=== PATIENT | female | born 1970 | race African-American/Black ===

== ENCOUNTER 2019-04-30 16:23 | Observation (INO) | payer OTHER ==
[2019-04-30] MEDS ORDERED: NACL 0.9% 1000 ML IV ONE (17:28)
--- NOTE | 2019-04-30 18:12 | XRay Report ---
CHEST 1 VIEW INDICATION: sob. COMPARISON: None. FINDINGS: Support devices: None. Heart: Within normal limits. Lungs/Pleura: No acute air space or interstitial disease. Lung volumes are mildly diminished. Additional findings: None. IMPRESSION: Mildly diminished lung volumes. Signer Name: Sergo Mcconnell MD Signed: 04/30/2019 6:08 PM Workstation Name: [id number]
--- NOTE | 2019-04-30 18:34 | Emergency Department Report ---
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 This patient is not known to this provider pre viously. She does not have a local primary care doctor. She may have a history of hypertension. She states that she is not . The patient is brought to the hospital by emergency medical services with a complaint of weakness. The patient describes global weakness which started at 12:00 today. This is associated with a sensation of shortness of breath. The patient cannot further describe the shortness of breath. She also describes back pain and dysuria. She also describes head pressure. She also describes a feeling like there is something pressing on her entire body. She does not specifically complain of focal extremity weakness or numbness. She denies neck pain, chest pain, anterior abdominal pain, an individual extremity muscular pain. She's never had this before. -: Gradual Location: head, back Quality: constant Improves with: none Worsens with: none - Related Data Allergies Allergy/AdvReac Type Severity Reaction Status Date / Time No Known Allergies Allergy Unverified 04/30/19 18:28 ED Review of Systems ROS: Stated complaint: DIF/LOSS OF FEELING IN BODY Other details as noted in HPI Constitutional: malaise, weakness ENT: denies: congestion Respiratory: shortness of breath Cardiovascular: denies: syncope Gastrointestinal: denies: abdominal pain Genitourinary: dysuria Musculoskeletal: back pain Neurological: weakness Hematological/Lymphatic: denies: easy bleeding ED Past Medical Hx - Past Medical History Previous Medical History?: Yes Hx Hypertension: Yes - Social History Smoking Status: Never Smoker Substance Use Type: None ED Physical Exam - General Limitations: Language Barrier General appearance: alert, in no apparent distress - Head Head exam: Present: atraumatic, normocephalic - Eye Eye exam: Present: normal appearance, EOMI. Absent: nystagmus - ENT ENT exam: Present: normal exam, normal orophraynx, mucous membranes moist, normal external ear exam - Neck Neck exam: Present: normal inspection, full ROM. Absent: tenderness, meningismus - Respiratory Respiratory exam: Present: normal lung sounds bilaterally. Absent: respiratory distress - Cardiovascular Cardiovascular Exam: Present: normal rhythm, tachycardia, normal heart sounds. Absent: systolic murmur, diastolic murmur, rubs, gallop - GI/Abdominal GI/Abdominal exam: Present: soft. Absent: distended, tenderness, guarding, rebound, rigid, pulsatile mass - Extremities Exam Extremities exam: Present: normal inspection, full ROM, other (2+ pulses noted in the bilateral upper, lower extremities. There is no long bone tenderness. Musculoskeletal compartments are soft. The pelvis is stable.). Absent: pedal edema, joint swelling, calf tenderness - Back Exam Back exam: Present: normal inspection, full ROM. Absent: tenderness, CVA tenderness (R), CVA tenderness (L), paraspinal tenderness, vertebral tenderness - Neurological Exam Neurological exam: Present: alert, other (there is no facial droop. Tongue is midline. Extraocular movements are intact bilaterally. Phonating in complete sentences. Moving 4 extremities spontaneously. 5 out of 5 strength in 4 extremities. Sensation is intact to light touch in 4 extremities.) - Psychiatric Psychiatric exam: Present: flat affect - Skin Skin exam: Present: warm, dry, intact, normal color. Absent: rash ED Course Vital Signs 04/30/19 04/30/19 04/30/19 16:56 17:30 18:11 Temperature 98.9 F 98.5 F Pulse Rate 120 H Respiratory 16 14 Rate Blood Pressure 152/85 Blood Pressure [Left] O2 Sat by Pulse 97 99 Oximetry 04/30/19 19:00 Temperature Pulse Rate 123 H Respiratory 19 Rate Blood Pressure Blood Pressure 113/76 [Left] O2 Sat by Pulse 99 Oximetry - Reevaluation(s) Reevaluation #1: 04/30/19 18:36 Differential diagnosis, including but not limited to: Intracranial hemorrhage, pneumonia, pulmonary embolism, thyroid storm, intra-abdominal infection, urinary tract infection, bacteremia, viremia, acute coronary syndrome, anxiety Assessment and plan: 49-year-old female with a complaint of shortness of breath, back pain, pressure and general weakness. She is tachycardic but afebrile. She moves 4 extremities spontaneously. She does not appear to be in any acute distress. 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 We will treat her symptoms with IV fluids, obtain CT scan chest, CT scan abdomen pelvis, CT scan brain, and reassess. Appropriate screening laboratory studies are ordered. 04/30/19 18:37 Reevaluation #2: 04/30/19 20:10 Urinalysis suggestive of urinary tract infection. Laboratory studies rule in for sepsis, manifest by lactic acidosis, tachycardia, and leukocytosis. Antibiotics ordered. Additional fluids and potassium repletion ordered. Scans pending at this time. Reevaluation #3: 04/30/19 21:12 cta chest negative Reevaluation #4: 04/30/19 21:20 ct a/p negative for acute surgical process. Reevaluation #5: 04/30/19 21:37 Heart rate now 113. Patient still endorsing weakness. Given the persistence of abnormal vital signs, systemic inflammatory response syndrome, systemic illness, who recommended admission for IV antibiotics, fluids, and supportive care. Case is presented to Hospital nurse practitioner, Ms Brown, who accepts the patient to the medical service - Consultations Consultation #1: 04/30/19 22:39 d/w [place] physician coordinator, Dr Muniz, who authorized patients admission to this facility over night ED Medical Decision Making - Lab Data Result diagrams: 04/30/19 18:16 04/30/19 18:16 Vital Signs 04/30/19 04/30/19 16:56 18:11 Temperature 98.9 F 98.5 F Pulse Rate 120 H Respiratory 16 Rate Blood Pressure 152/85 O2 Sat by Pulse 97 Oximetry Vital Signs 04/30/19 04/30/19 04/30/19 16:56 17:30 18:11 Temperature 98.9 F 98.5 F Pulse Rate 120 H Respiratory 16 14 Rate Blood Pressure 152/85 Blood Pressure [Left] O2 Sat by Pulse 97 99 Oximetry 04/30/19 19:00 Temperature Pulse Rate 123 H Respiratory 19 Rate Blood Pressure Blood Pressure 113/76 [Left] O2 Sat by Pulse 99 Oximetry Lab Results 04/30/19 04/30/19 04/30/19 Range/Units 18:16 18:16 18:16 WBC 15.3 H (4.5-11.0) K/mm3 RBC 4.40 (3.65-5.03) M/mm3 Hgb 13.6 (10.1-14.3) gm/dl Hct 40.4 (30.3-42.9) % MCV 92 (79-97) fl MCH 31 (28-32) pg MCHC 34 (30-34) % RDW 12.9 L (13.2-15.2) % Plt Count 240 (140-440) K/mm3 Lymph % (Auto) 5.9 L (13.4-35.0) % Boyd % (Auto) 4.3 (0.0-7.3) % Eos % (Auto) 0.1 (0.0-4.3) % Baso % (Auto) 0.5 (0.0-1.8) % Lymph # 0.9 L (1.2-5.4) K/mm3 Boyd # 0.7 (0.0-0.8) K/mm3 Eos # 0.0 (0.0-0.4) K/mm3 Baso # 0.1 (0.0-0.1) K/mm3 Seg Neutrophils % 89.2 H (40.0-70.0) % Seg Neutrophils # 13.6 H (1.8-7.7) K/mm3 PT (12.2-14.9) Sec. INR (0.87-1.13) APTT (24.2-36.6) Sec. Sodium 140 (137-145) mmol/L Potassium 3.4 L (3.6-5.0) mmol/L Chloride 96.0 L (98-107) mmol/L Carbon Dioxide 25 (22-30) mmol/L Anion Gap 22 mmol/L BUN 18 H (7-17) mg/dL Creatinine 0.7 (0.7-1.2) mg/dL Estimated GFR > 60 ml/min BUN/Creatinine Ratio 26 % Glucose 154 H (65-100) mg/dL Lactic Acid 3.00 H* (0.7-2.0) mmol/L Calcium 9.1 (8.4-10.2) mg/dL Magnesium 2.10 (1.7-2.3) mg/dL Total Bilirubin 0.30 (0.1-1.2) mg/dL AST 48 H (5-40) units/L ALT 75 H (7-56) units/L Alkaline Phosphatase 70 (35-129) units/L Total Creatine Kinase 152 H (30-135) units/L Troponin T < 0.010 (0.00-0.029) ng/mL Total Protein 8.2 (6.3-8.2) g/dL Albumin 4.5 (3.9-5) g/dL Albumin/Globulin Ratio 1.2 % TSH (0.270-4.200) mlU/mL Urine Color (Yellow) Urine Turbidity (Clear) Urine pH (5.0-7.0) Ur Specific Commiskey (1.003-1.030) Urine Protein (Negative) mg/dL Urine Glucose (UA) (Negative) mg/dL Urine Ketones (Negative) mg/dL Urine Blood (Negative) Urine Nitrite (Negative) Urine Bilirubin (Negative) Urine Urobilinogen (<2.0) mg/dL Ur Leukocyte Esterase (Negative) Urine WBC (Auto) (0.0-6.0) /HPF Urine RBC (Auto) (0.0-6.0) /HPF U Epithel Cells (Auto) (0-13.0) /HPF Urine Mucus /HPF 04/30/19 04/30/19 04/30/19 Range/Units 18:27 18:28 19:42 WBC (4.5-11.0) K/mm3 RBC (3.65-5.03) M/mm3 Hgb (10.1-14.3) gm/dl Hct (30.3-42.9) % MCV (79-97) fl MCH (28-32) pg MCHC (30-34) % RDW (13.2-15.2) % Plt Count (140-440) K/mm3 Lymph % (Auto) (13.4-35.0) % Boyd % (Auto) (0.0-7.3) % Eos % (Auto) (0.0-4.3) % Baso % (Auto) (0.0-1.8) % Lymph # (1.2-5.4) K/mm3 Boyd # (0.0-0.8) K/mm3 Eos # (0.0-0.4) K/mm3 Baso # (0.0-0.1) K/mm3 Seg Neutrophils % (40.0-70.0) % Seg Neutrophils # (1.8-7.7) K/mm3 PT 12.9 (12.2-14.9) Sec. INR 1.00 (0.87-1.13) APTT 27.7 (24.2-36.6) Sec. Sodium (137-145) mmol/L Potassium (3.6-5.0) mmol/L Chloride (98-107) mmol/L Carbon Dioxide (22-30) mmol/L Anion Gap mmol/L BUN (7-17) mg/dL Creatinine (0.7-1.2) mg/dL Estimated GFR ml/min BUN/Creatinine Ratio % Glucose (65-100) mg/dL Lactic Acid (0.7-2.0) mmol/L Calcium (8.4-10.2) mg/dL Magnesium (1.7-2.3) mg/dL Total Bilirubin (0.1-1.2) mg/dL AST (5-40) units/L ALT (7-56) units/L Alkaline Phosphatase (35-129) units/L Total Creatine Kinase (30-135) units/L Troponin T (0.00-0.029) ng/mL Total Protein (6.3-8.2) g/dL Albumin (3.9-5) g/dL Albumin/Globulin Ratio % TSH 0.909 (0.270-4.200) mlU/mL Urine Color Yellow (Yellow) Urine Turbidity Clear (Clear) Urine pH 6.0 (5.0-7.0) Ur Specific Commiskey 1.015 (1.003-1.030) Urine Protein <15 mg/dl (Negative) mg/dL Urine Glucose (UA) Neg (Negative) mg/dL Urine Ketones Neg (Negative) mg/dL Urine Blood Neg (Negative) Urine Nitrite Pos (Negative) Urine Bilirubin Neg (Negative) Urine Urobilinogen < 2.0 (<2.0) mg/dL Ur Leukocyte Esterase Tr (Negative) Urine WBC (Auto) 12.0 H (0.0-6.0) /HPF Urine RBC (Auto) 3.0 (0.0-6.0) /HPF U Epithel Cells (Auto) 1.0 (0-13.0) /HPF Urine Mucus Few /HPF - EKG Data -: EKG Interpreted by Sc EKG shows normal: sinus rhythm Rate: tachycardia - EKG Data When compared to previous EKG there are: previous EKG unavailable 04/30/19 18:38 Is no prior EKG available for comparison. This is a sinus tachycardia, 121 bpm, there is a rightward axis deviation, the QTC is prolonged, there is motion artifact, Q waves noted in the inferior leads, the EKG is abnormal, the EKG is not consistent with ST elevation myocardial. There is no prior EKG available for comparison. - Radiology Data Radiology results: report reviewed, image reviewed Print Report Referring Physician: TERESA GORDON Patient Name: DIONNE SANTOS Date of : 1970 Sex: Female Report Date: 2019-04-30 Report Status: Finalized Findings [facility] [address] [place] [address] XRay Report Signed Patient: DIONNE SANTOS MR#: [id number] 3 : 1970 Acct:[id number] Age/Sex: 49 / F ADM Date: 04/30/19 Loc: ED Attending Dr: Ordering Physician: TERESA GORDON MD Date of Service: 04/30/19 Procedure(s): XR chest 1V ap Accession Number(s): [id number] cc: TERESA GORDON MD Fluoro Time In Minutes: CHEST 1 VIEW INDICATION: sob. COMPARISON: None. FINDINGS: Support devices: None. Heart: Within normal limits. Lungs/Pleura: No acute air space or interstitial disease. Lung volumes are mildly diminished. Additional findings: None. IMPRESSION: Mildly diminished lung volumes. Signer Name: Sergo Mcconnell MD Signed: 04/30/2019 6:08 PM Workstation Name: [id number] Transcribed By: ES Dictated By: Sergo Mcconnell MD Electronically Authenticated By: Sergo Mcconnell MD Signed Date/Time: 04/30/191807 DD/ 06 Critical Care Time: Yes Critical care time in (mins) excluding proc time.: 35 Critical care attestation.: If time is entered above; I have spent that time in minutes in the direct care of this critically ill patient, excluding procedure time. ED Disposition Clinical Impression: Sepsis, Dyspnea, Weakness, Hypokalemia Disposition: OP ADMIT IP TO THIS HOSP Is pt being admited?: Yes Condition: Serious
[2019-04-30 18:47] LABS: Basophils # (Auto) 0.1 K/mm3 (0.0-0.1); Basophils % (Auto) 0.5 % (0.0-1.8); Eosinophils % (Auto) 0.1 % (0.0-4.3); Hematocrit 40.4 % (30.3-42.9); Hemoglobin 13.6 gm/dl (10.1-14.3); Lymphocytes # (Auto) 0.9 K/mm3 (1.2-5.4); Lymphocytes % (Auto) 5.9 % (13.4-35.0); Mean Corpuscular HGB Conc 34 % (30-34); Mean Corpuscular Volume 92 fl (79-97); Monocytes # (Auto) 0.7 K/mm3 (0.0-0.8); Monocytes % (Auto) 4.3 % (0.0-7.3); Red Cell Distribution Width 12.9 % (13.2-15.2)
[2019-04-30 18:58] LABS: Partial Thromboplastin Time 27.7 Sec. (24.2-36.6)
[2019-04-30 19:03] LABS: Alanine Aminotransferase 75 units/L (7-56); Albumin 4.5 g/dL (3.9-5); BUN/Creatinine Ratio 26; Blood Urea Nitrogen 18 mg/dL (7-17); Calcium 9.1 mg/dL (8.4-10.2); Hemolysis Index 13
[2019-04-30 19:54] LABS: Bilirubin,Urine NEG (Negative); Blood,Urine NEG (Negative); Color,Urine Yellow (Yellow); Mucus,Urine FEW /HPF; Protein,Urine <15 mg/dL mg/dL (Negative); Urobilinogen,Urine < 2.0 mg/dL (<2.0)
[2019-04-30 20:00] LABS: Platelet Count 240 K/mm3 (140-440)
[2019-04-30] MEDS ORDERED: NACL 0.9% 1000 ML 1,000 ML IV ONE (20:09)
[2019-04-30] MEDS ORDERED: ROCEPHIN/NS 2 GM/100 ML 2 GM/100 ML BAG IV ONE (20:09)
[2019-04-30] MEDS ORDERED: K-DUR PO ONE (20:09)
--- NOTE | 2019-04-30 20:55 | Cat Scan Report ---
CT angio chest INDICATION: sob weak. TECHNIQUE: All CT scans at this location are performed using CT dose reduction for ALARA by means of automated e xposure control. Precontrast localizer images were obtained, followed by axial and 3-dimensional reconstruction images , performed at an independent workstation by the mechanical technologist after IV bolus contrast injection. COMPARISON: None available. FINDINGS: Mediastinum, vijaya and axillae are negative. Very mild, chronic appearing diffuse interstitial lung di sease. No pleural fluid. No focal consolidation. Images through the abdomen show marked hepatic steatosis. No evidence of pulmonary embolus. IMPRESSION: 1. Negative for pulmonary embolus. 2. Hepatic steatosis. Signer Name: Max Vidal MD Signed: 04/30/2019 8:50 PM Workstation Name: [id number]
--- NOTE | 2019-04-30 21:13 | Cat Scan Report ---
CT abdomen pelvis w con INDICATION: back pain weak tachycardia dysuria. TECHNIQUE: All CT scans at this location are performed using CT dose reduction for ALARA by means of automated e xposure control. COMPARISON: None available. FINDINGS: Lung bases are clear of acute disease. Interval atelectasis in the dependent lungs. Low-attenuation l esion in the right lobe of the liver probably represent small hemangioma, since it is less prominent on delayed images. Liver is otherwise negative. Gallbladder, spleen, pancreas, kidneys and adrenals a re negative. Abdominal aorta is normal in size. No adenopathy. 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 Pelvis IUD in the uterus. Urinary bladder and distal ureters are negative. Ovaries appear normal. Appendix c annot be identified, but there is no pericecal edema. No free fluid. No appreciable bowel abnormality . No skeletal lesions. IMPRESSION: 1. No acute abnormalities. Signer Name: Max Vidal MD Signed: 04/30/2019 9:09 PM Workstation Name: [id number]
--- NOTE | 2019-04-30 21:22 | Cat Scan Report ---
CT head/brain wo con INDICATION / CLINICAL INFORMATION: 49 years Female; headache weak. TECHNIQUE: Routine CT head without contrast. All CT scans at this location are performed using CT dos e reduction for ALARA by means of automated exposure control. COMPARISON: None. FINDINGS: BRAIN / INTRACRANIAL CONTENTS: No acute hemorrhage, mass effect, midline shift, hydrocephalus, or acu te, large territorial infarct. No chronic infarct or focal atrophy. Normal brain volume and ventricul ar/sulcal size for age. No significant white matter abnormality. CRANIOCERVICAL JUNCTION: No significant abnormality. ORBITS: No significant abnormality of visualized orbits. SINUSES / MASTOIDS: The visualized left maxillary antrum appears to be nearly completely opacified. ADDITIONAL FINDINGS: None. IMPRESSION: 1. No focal mass, hemorrhage, hydrocephalus, or acute, large territorial infarct. Signer Name: Prasanna Hou MD, III Signed: 04/30/2019 9:17 PM Workstation Name: [id number]
[2019-04-30 21:42] LABS: HCG,Quantitative < 2 mIU/mL (0-4); Hepatitis B Surface Antigen Non-Reactive (Negative); Hepatitis C Virus Antibody Non-Reactive (NonReactive)
[2019-04-30] MEDS ORDERED: ZOFRAN IV PRN (21:45)
[2019-04-30] MEDS ORDERED: SODIUM CHLORIDE FLUSH SYRINGE 10 ML IV PRN (21:45)
[2019-04-30] MEDS ORDERED: PERCOCET 5/325 PO PRN (21:45)
[2019-04-30] MEDS ORDERED: TYLENOL PO PRN (21:45)
--- NOTE | 2019-04-30 21:51 | History and Physical Report ---
<BE MOLINA - Last Filed: 05/01/19 02:14> History of Present Illness Date of examination: 04/30/19 Date of admission: 04/30/2019 Chief complaint: weakness and pain with urination x5 days History of present illness: Pt is a 49 year old Upper Sorbian-speaking female with PMHx of HTN who was brought to the ER with complaint of weakness and difficulty urinating x 5 days. Pt's son at bedside translates that the The patient states that she had been having pain in urination for 5 days, she states that she woke up this morning feeling very weak and dizzy, she almost passed out, that when her son called the ambulance and she was taking to the ER. Pt reports chest pain and generalized body aches, back pain, disuria, generalized weakness and numbness, she denies nausea, denies vomiting, denied fever, denied chills. In the ER pt had a positive UTI, her WBC was 15.3, potassium 3.4, lactic acid was 4, IVF and IV antibiotic was started, she was admitted for further management. Pt belongs to [facility], they were called by the RE doctor, they approved her stay for observation. Past History Past Medical History: hypertension Past Surgical History: No surgical history Social history: no significant social history Family history: no significant family history Medications and Allergies Allergies Allergy/AdvReac Type Severity Reaction Status Date / Time No Known Allergies Allergy Unverified 04/30/19 18:28 Active Meds: Active Medications Potassium Chloride (Kcl 10meq/100ml) 10 meq in 100 mls @ 100 mls/hr IV Q1H [facility] Stop: 04/30/19 22:59 Review of Systems Constitutional: weakness, lethargy Cardiovascular: chest pain Gastrointestinal: abdominal pain Genitourinary Female: dyspareunia, dysuria Musculoskeletal: low back pain Neurological: weakness Exam - Constitutional Vitals: Temp Pulse Resp BP Pulse Ox 98.5 F 123 H 19 113/76 99 04/30/19 18:11 04/30/19 19:00 04/30/19 19:00 04/30/19 19:00 04/30/19 19:00 General appearance: Present: mild distress, well-nourished - EENT Eyes: Present: EOM intact ENT: hearing intact - Neck Neck: Present: normal ROM - Respiratory Respiratory effort: normal Respiratory: right: CTA - Cardiovascular Rhythm: regular Results - Labs CBC & Chem 7: 04/30/19 18:16 04/30/19 18:16 Labs: Laboratory Last Values WBC 15.3 K/mm3 (4.5-11.0) H 04/30/19 18:16 RBC 4.40 M/mm3 (3.65-5.03) 04/30/19 18:16 Hgb 13.6 gm/dl (10.1-14.3) 04/30/19 18:16 Hct 40.4 % (30.3-42.9) 04/30/19 18:16 MCV 92 fl (79-97) 04/30/19 18:16 MCH 31 pg (28-32) 04/30/19 18:16 MCHC 34 % (30-34) 04/30/19 18:16 RDW 12.9 % (13.2-15.2) L 04/30/19 18:16 Plt Count 240 K/mm3 (140-440) 04/30/19 18:16 Lymph % (Auto) 5.9 % (13.4-35.0) L 04/30/19 18:16 [place] % (Auto) 4.3 % (0.0-7.3) 04/30/19 18:16 Eos % (Auto) 0.1 % (0.0-4.3) 04/30/19 18:16 Baso % (Auto) 0.5 % (0.0-1.8) 04/30/19 18:16 Lymph # 0.9 K/mm3 (1.2-5.4) L 04/30/19 18:16 [place] # 0.7 K/mm3 (0.0-0.8) 04/30/19 18:16 Eos # 0.0 K/mm3 (0.0-0.4) 04/30/19 18:16 Baso # 0.1 K/mm3 (0.0-0.1) 04/30/19 18:16 Seg Neutrophils % 89.2 % (40.0-70.0) H 04/30/19 18:16 Seg Neutrophils # 13.6 K/mm3 (1.8-7.7) H 04/30/19 18:16 PT 12.9 Sec. (12.2-14.9) 04/30/19 18:28 INR 1.00 (0.87-1.13) 04/30/19 18:28 APTT 27.7 Sec. (24.2-36.6) 04/30/19 18:28 Sodium 140 mmol/L (137-145) 04/30/19 18:16 Potassium 3.4 mmol/L (3.6-5.0) L 04/30/19 18:16 Chloride 96.0 mmol/L (98-107) L 04/30/19 18:16 Carbon Dioxide 25 mmol/L (22-30) 04/30/19 18:16 Anion Gap 22 mmol/L 04/30/19 18:16 BUN 18 mg/dL (7-17) H 04/30/19 18:16 Creatinine 0.7 mg/dL (0.7-1.2) 04/30/19 18:16 Estimated GFR > 60 ml/min 04/30/19 18:16 BUN/Creatinine Ratio 26 % 04/30/19 18:16 Glucose 154 mg/dL (65-100) H 04/30/19 18:16 Lactic Acid 2.80 mmol/L (0.7-2.0) H* 04/30/19 20:52 Calcium 9.1 mg/dL (8.4-10.2) 04/30/19 18:16 Magnesium 2.10 mg/dL (1.7-2.3) 04/30/19 18:16 Total Bilirubin 0.30 mg/dL (0.1-1.2) 04/30/19 18:16 AST 48 units/L (5-40) H 04/30/19 18:16 ALT 75 units/L (7-56) H 04/30/19 18:16 Alkaline Phosphatase 70 units/L (35-129) 04/30/19 18:16 Total Creatine Kinase 152 units/L (30-135) H 04/30/19 18:16 Troponin T < 0.010 ng/mL (0.00-0.029) 04/30/19 18:16 Total Protein 8.2 g/dL (6.3-8.2) 04/30/19 18:16 Albumin 4.5 g/dL (3.9-5) 04/30/19 18:16 Albumin/Globulin Ratio 1.2 % 04/30/19 18:16 TSH 0.909 mlU/mL (0.270-4.200) 04/30/19 18:27 Free T4 1.10 ng/dL (0.76-1.46) 04/30/19 20:51 HCG, Quant < 2 mIU/mL (0-4) 04/30/19 20:40 Urine Color Yellow (Yellow) 04/30/19 19:42 Urine Turbidity Clear (Clear) 04/30/19 19:42 Urine pH 6.0 (5.0-7.0) 04/30/19 19:42 Ur Specific [place] 1.015 (1.003-1.030) 04/30/19 19:42 Urine Protein <15 mg/dl mg/dL (Negative) 04/30/19 19:42 Urine Glucose (UA) Neg mg/dL (Negative) 04/30/19 19:42 Urine Ketones Neg mg/dL (Negative) 04/30/19 19:42 Urine Blood Neg (Negative) 04/30/19 19:42 Urine Nitrite Pos (Negative) 04/30/19 19:42 Urine Bilirubin Neg (Negative) 04/30/19 19:42 Urine Urobilinogen < 2.0 mg/dL (<2.0) 04/30/19 19:42 Ur Leukocyte Esterase Tr (Negative) 04/30/19 19:42 Urine WBC (Auto) 12.0 /HPF (0.0-6.0) H 04/30/19 19:42 Urine RBC (Auto) 3.0 /HPF (0.0-6.0) 04/30/19 19:42 U Epithel Cells (Auto) 1.0 /HPF (0-13.0) 04/30/19 19:42 Urine Mucus Few /HPF 04/30/19 19:42 Hepatitis A IgM Ab Non-reactive (NonReactive) 04/30/19 20:40 Hep Bs Antigen Non-reactive (Negative) 04/30/19 20:40 Hep B Core IgM Ab Non-reactive (NonReactive) 04/30/19 20:40 Hepatitis C Antibody Non-reactive (NonReactive) 04/30/19 20:40 Assessment and Plan Assessment and plan: 1. Urosepsis 2. Hypokalemia 3. Leukocytosis 4. H/o HTN Plan: Pt is admitted for urosepsis Continue Ceftriaxone daily IVF for hydration Repeat labs in am Resume home meds Supportive care DVT prophylaxis Plan d/w pt's family in room Pt's condition/plan d/w Dr Lira Advance Directives: Yes VTE prophylaxis?: Mechanical Plan of care discussed with patient/family: Yes <JULIO CESAR LIRA - Last Filed: 05/01/19 02:25> History of Present Illness Date of admission: 04/30/19 21:45 Medications and Allergies Active Meds: Active Medications Acetaminophen (Tylenol) 650 mg PO Q4H PRN PRN Reason: Pain MILD(1-3)/Fever >100.5/WOODS Famotidine (Pepcid) 20 mg IV BID [facility] Last Admin: 04/30/19 23:09 Dose: 20 mg Documented by: Sodium Chloride (Nacl 0.9% 1000 Ml) 1,000 mls @ 150 mls/hr IV DIRECT [facility] Last Admin: 04/30/19 23:09 Dose: 100 mls/hr Documented by: Ceftriaxone Sodium (Rocephin/Ns 1 Gm/50 Ml) 1 gm in 50 mls @ 100 mls/hr IV Q24HR [facility]; Protocol Ondansetron HCl (Zofran) 4 mg IV Q8H PRN PRN Reason: Nausea And Vomiting Oxycodone/Acetaminophen (Percocet 5/325) 1 tab PO Q6H PRN PRN Reason: Pain, Moderate (4-6) Sodium Chloride (Sodium Chloride Flush Syringe 10 Ml) 10 ml IV BID [facility] Last Admin: 04/30/19 23:09 Dose: 10 ml Documented by: Sodium Chloride (Sodium Chloride Flush Syringe 10 Ml) 10 ml IV PRN PRN PRN Reason: LINE FLUSH Exam - Constitutional Vitals: Temp Pulse Resp BP Pulse Ox 98.7 F 112 H 19 119/79 98 04/30/19 19:40 04/30/19 23:03 04/30/19 22:40 04/30/19 22:40 04/30/19 22:40 Results - Labs CBC & Chem 7: 04/30/19 18:16 04/30/19 18:16 Labs: Laboratory Last Values WBC 15.3 K/mm3 (4.5-11.0) H 04/30/19 18:16 RBC 4.40 M/mm3 (3.65-5.03) 04/30/19 18:16 Hgb 13.6 gm/dl (10.1-14.3) 04/30/19 18:16 Hct 40.4 % (30.3-42.9) 04/30/19 18:16 MCV 92 fl (79-97) 04/30/19 18:16 MCH 31 pg (28-32) 04/30/19 18:16 MCHC 34 % (30-34) 04/30/19 18:16 RDW 12.9 % (13.2-15.2) L 04/30/19 18:16 Plt Count 240 K/mm3 (140-440) 04/30/19 18:16 Lymph % (Auto) 5.9 % (13.4-35.0) L 04/30/19 18:16 [place] % (Auto) 4.3 % (0.0-7.3) 04/30/19 18:16 Eos % (Auto) 0.1 % (0.0-4.3) 04/30/19 18:16 Baso % (Auto) 0.5 % (0.0-1.8) 04/30/19 18:16 Lymph # 0.9 K/mm3 (1.2-5.4) L 04/30/19 18:16 [place] # 0.7 K/mm3 (0.0-0.8) 04/30/19 18:16 Eos # 0.0 K/mm3 (0.0-0.4) 04/30/19 18:16 Baso # 0.1 K/mm3 (0.0-0.1) 04/30/19 18:16 Seg Neutrophils % 89.2 % (40.0-70.0) H 04/30/19 18:16 Seg Neutrophils # 13.6 K/mm3 (1.8-7.7) H 04/30/19 18:16 PT 12.9 Sec. (12.2-14.9) 04/30/19 18:28 INR 1.00 (0.87-1.13) 04/30/19 18:28 APTT 27.7 Sec. (24.2-36.6) 04/30/19 18:28 Sodium 140 mmol/L (137-145) 04/30/19 18:16 Potassium 3.4 mmol/L (3.6-5.0) L 04/30/19 18:16 Chloride 96.0 mmol/L (98-107) L 04/30/19 18:16 Carbon Dioxide 25 mmol/L (22-30) 04/30/19 18:16 Anion Gap 22 mmol/L 04/30/19 18:16 BUN 18 mg/dL (7-17) H 04/30/19 18:16 Creatinine 0.7 mg/dL (0.7-1.2) 04/30/19 18:16 Estimated GFR > 60 ml/min 04/30/19 18:16 BUN/Creatinine Ratio 26 % 04/30/19 18:16 Glucose 154 mg/dL (65-100) H 04/30/19 18:16 Lactic Acid 3.20 mmol/L (0.7-2.0) H* 04/30/19 23:08 Calcium 9.1 mg/dL (8.4-10.2) 04/30/19 18:16 Magnesium 2.10 mg/dL (1.7-2.3) 04/30/19 18:16 Total Bilirubin 0.30 mg/dL (0.1-1.2) 04/30/19 18:16 AST 48 units/L (5-40) H 04/30/19 18:16 ALT 75 units/L (7-56) H 04/30/19 18:16 Alkaline Phosphatase 70 units/L (35-129) 04/30/19 18:16 Total Creatine Kinase 152 units/L (30-135) H 04/30/19 18:16 Troponin T < 0.010 ng/mL (0.00-0.029) 04/30/19 18:16 Total Protein 8.2 g/dL (6.3-8.2) 04/30/19 18:16 Albumin 4.5 g/dL (3.9-5) 04/30/19 18:16 Albumin/Globulin Ratio 1.2 % 04/30/19 18:16 TSH 0.909 mlU/mL (0.270-4.200) 04/30/19 18:27 Free T4 1.10 ng/dL (0.76-1.46) 04/30/19 20:51 HCG, Quant < 2 mIU/mL (0-4) 04/30/19 20:40 Urine Color Yellow (Yellow) 04/30/19 19:42 Urine Turbidity Clear (Clear) 04/30/19 19:42 Urine pH 6.0 (5.0-7.0) 04/30/19 19:42 Ur Specific [place] 1.015 (1.003-1.030) 04/30/19 19:42 Urine Protein <15 mg/dl mg/dL (Negative) 04/30/19 19:42 Urine Glucose (UA) Neg mg/dL (Negative) 04/30/19 19:42 Urine Ketones Neg mg/dL (Negative) 04/30/19 19:42 Urine Blood Neg (Negative) 04/30/19:42 Urine Nitrite Pos (Negative) 04/30/19 19:42 Urine Bilirubin Neg (Negative) 04/30/19 19:42 Urine Urobilinogen < 2.0 mg/dL (<2.0) 04/30/19 19:42 Ur Leukocyte Esterase Tr (Negative) 04/30/19 19:42 Urine WBC (Auto) 12.0 /HPF (0.0-6.0) H 04/30/19 19:42 Urine RBC (Auto) 3.0 /HPF (0.0-6.0) 04/30/19 19:42 U Epithel Cells (Auto) 1.0 /HPF (0-13.0) 04/30/19 19:42 Urine Mucus Few /HPF 04/30/19 19:42 Hepatitis A IgM Ab Non-reactive (NonReactive) 04/30/19 20:40 Hep Bs Antigen Non-reactive (Negative) 04/30/19 20:40 Hep B Core IgM Ab Non-reactive (NonReactive) 04/30/19 20:40 Hepatitis C Antibody Non-reactive (NonReactive) 04/30/19 20:40 Assessment and Plan Assessment and plan: 49-year-old woman history of hypertension comes emergency room complaining of dysuria, generalized weakness and heavy sensation in head. Labs significant for urinary tract infection and abnormal LFTs with negative CT abdomen. Agree with IV Rocephin, fluid. Discussed with patient and son at bedside
[2019-04-30] MEDS ORDERED: PEPCID IV SCH (22:00)
[2019-04-30] MEDS ORDERED: PEPCID IV ONE (22:17)
[2019-04-30] MEDS: KCL 10MEQ/100ML 10 MEQ/100 ML BAG IV SCH (22:40)
[2019-04-30] MEDS: NACL 0.9% 1000 ML 1,000 ML IV SCH (23:09)
[2019-04-30] MEDS: SODIUM CHLORIDE FLUSH SYRINGE 10 ML IV SCH (23:09)
[2019-05-01] MEDS: KCL 10MEQ/100ML 10 MEQ/100 ML BAG IV SCH ×2 (00:10)
[2019-05-01] MEDS ORDERED: NACL 0.9% 1000 ML 1,000 ML IV SCH (03:00)
[2019-05-01] MEDS: NACL 0.9% 1000 ML 1,000 ML IV SCH (05:42)
[2019-05-01 06:09] LABS: Basophils % (Auto) 0.2 % (0.0-1.8); Eosinophils % (Auto) 0.2 % (0.0-4.3); Hematocrit 35.1 % (30.3-42.9); Lymphocytes # (Auto) 1.6 K/mm3 (1.2-5.4); Lymphocytes % (Auto) 16.3 % (13.4-35.0); Mean Corpuscular HGB Conc 34 % (30-34); Mean Corpuscular Volume 92 fl (79-97); Monocytes # (Auto) 0.7 K/mm3 (0.0-0.8); Monocytes % (Auto) 7.2 % (0.0-7.3); Platelet Count 214 K/mm3 (140-440); Red Blood Count 3.83 M/mm3 (3.65-5.03)
[2019-05-01] MEDS: SODIUM CHLORIDE FLUSH SYRINGE 10 ML IV SCH (09:58)
[2019-05-01] MEDS ORDERED: PEPCID PO SCH (10:00)
[2019-05-01] MEDS ORDERED: ROCEPHIN/NS 2 GM/100 ML 2 GM/100 ML BAG IV SCH (10:00)
[2019-05-01] MEDS ORDERED: ROCEPHIN/NS 1 GM/50 ML 1 GM/50 ML BAG IV SCH (10:00)
[2019-05-01 11:51] VITALS: BP 136/65
--- NOTE | 2019-05-01 14:18 | Discharge Summary ---
Providers - Providers Date of Admission: 04/30/19 21:45 Date of discharge: 05/01/19 Attending physician: JASON TROTTER Primary care physician: ASSISTANT SCIENTIST Hospitalization Condition: Serious Pertinent studies: CXR CHest CTA Head CT Abdomen/pelvis CT Hospital course: Pt is a 49 year old Austrian-speaking female with PMHx of HTN who was brought to the ER with complaint of weakness and difficulty urinating x 5 days. In the ER pt had a positive UTI, her WBC was 15.3, potassium 3.4, lactic acid was 4, IVF and IV antibiotic was started, she was admitted for further management. Her white count improved, lactic acid trended down, K repleted. Patient was then discharged home in stable condition with outpt followup. Discharge Diagnosis: 1. UTI with sepsis - no acute findings on CT abdoemn/pelvis - treated with abx 2. Hypokalemia, repleted 3. Leukocytosis, due to UTI and sepsis 4. H/o HTN 5. Dizziness due to UTI and sepsis, resolved - head cT and CTA chest was unremarkable Disposition: DC- TO HOME OR SELFCARE Time spent for discharge: 34 minutes Core Measure Documentation - Palliative Care Palliative Care/ Comfort Measures: Not Applicable - Core Measures Any of the following diagnoses?: none Exam - Constitutional Vitals: Temp Pulse Resp BP Pulse Ox 98 F 86 21 136/65 99 05/01/19 11:30 05/01/19 11:30 05/01/19 11:30 05/01/19 11:30 05/01/19 08:25 General appearance: Present: no acute distress, well-nourished - EENT Eyes: Present: PERRL ENT: hearing intact, clear oral mucosa - Neck Neck: Present: supple, normal ROM - Respiratory Respiratory effort: normal Respiratory: bilateral: CTA - Cardiovascular Heart Sounds: Present: S1 & S2. Absent: rub, click - Extremities Extremities: pulses symmetrical, No edema Peripheral Pulses: within normal limits - Abdominal General gastrointestinal: Present: soft, non-tender, non-distended, normal bowel sounds - Integumentary Integumentary: Present: clear, warm, dry - Musculoskeletal Musculoskeletal: gait normal, strength equal bilaterally - Psychiatric Psychiatric: appropriate mood/affect, intact judgment & insight - Neurologic Neurologic: CNII-XII intact, moves all extremities Plan Activity: advance as tolerated Weight Bearing Status: Weight Bear as Tolerated Diet: low fat, low salt Special Instructions: record daily BP diary Follow up with: PRIMARY CARE, [Primary Care Provider] - 3-5 Days Prescriptions: levoFLOXacin [Levaquin] 750 mg PO QDAY #5 tablet
== END 2019-05-01 16:23 | disposition home or self-care (01) ==
LOC: ED 16:23 → 4A 21:45 → INTOOBSV 21:45
PROVIDERS: ADMIT Internal Medicine; ATTEND Internal Medicine
DX: A41.9 Sepsis, unspecified organism (principal); E87.6 Hypokalemia; D72.829 Elevated white blood cell count, unspecified; I10 Essential (primary) hypertension
CPT/HCPCS: 36415; 70450; 71045; 71275; 74177; 80053; 80074; 81001; 82140; 82550; 83735; 84132; 84439; 84443; 84484; 84702; 85025; 85610; 85730; 87040; 87076; 87086; 87186; 93005; 93010; 96365; 96366; 96367; 96375; 99291; G0378; J0696; J3480; J7030; Q9967; 96374